=== PATIENT | female | born 1995 | race Caucasian/White ===

== ENCOUNTER 2024-12-07 21:06 | Emergency (ER) | payer SELFPAY ==
[2024-12-07] MEDS ORDERED: Sodium Chloride 0.9% 2.5 ML Syringe FLUSH PRN (21:42)
[2024-12-07] MEDS ORDERED: Sodium Chloride 0.9% 20 ML SDV IV PRN (21:42)
[2024-12-07] MEDS ORDERED: Sodium Chloride 0.9% 10 ML Syringe FLUSH PRN (21:42)
[2024-12-07] MEDS: Ondansetron 4 MG/2 ML SDV IVPUSH ONE (21:51)
[2024-12-07] MEDS: Sodium Chloride 0.9% 1,000 ML IV STA (21:51)
[2024-12-07 21:55] LABS: BASOPHILS ABSOLUTE AUTO 0.08 K/uL (0.00-0.20); BASOPHILS PERCENT AUTO 0.9 % (0.0-1.0); EOSINOPHILS ABSOLUTE AUTO 0.43 K/uL (0.00-0.45); EOSINOPHILS PERCENT AUTO 4.8 % (0.0-6.0); HEMOGLOBIN 13.1 g/dL (12.0-16.0); IMMATURE GRAN ABSOLUTE AUTO 0.01 K/uL (0.00-0.05); IMMATURE GRAN PERCENT AUTO 0.1 % (0.0-0.4); LYMPHOCYTES ABSOLUTE AUTO 3.11 K/uL (1.00-4.80); LYMPHOCYTES PERCENT AUTO 35.1 % (24.0-44.0); MEAN CORPUSCULAR HGB CONC 32.8 g/dL (32.0-36.0); MEAN CORPUSCULAR VOLUME 85.5 fL (83.0-99.0); MEAN PLATELET VOLUME 10.1 fL (9.4-12.3); MONOCYTES ABSOLUTE AUTO 0.85 K/uL (0.00-0.80); MONOCYTES PERCENT AUTO 9.6 % (0.0-8.0); NEUTROPHILS ABSOLUTE AUTO 4.39 K/uL (1.80-7.70); NEUTROPHILS PERCENT AUTO 49.5 % (41.0-71.0); PLATELET COUNT,PLT 288 K/uL (150-400); RED BLOOD CELL COUNT 4.68 M/uL (4.10-5.30); WHITE BLOOD CELL COUNT,WBC 8.87 K/uL (3.9-11.3)
[2024-12-07 22:03] LABS: BILIRUBIN,URINE NEGATIVE (NEGATIVE); COLOR,URINE YELLOW; GLUCOSE,URINE NEGATIVE (NEGATIVE); KETONES,URINE TRACE mg/dL (NEGATIVE); LEUKOCYTE ESTERASE,URINE TRACE (NEGATIVE); NITRITE,URINE NEGATIVE (NEGATIVE); OCCULT BLOOD,URINE NEGATIVE (NEGATIVE); PH,URINE 6.5 (5.0-8.0); PROTEIN,URINE NEGATIVE (NEGATIVE)
[2024-12-07 22:06] LABS: APPEARANCE,URINE HAZY
[2024-12-07 22:10] LABS: BACTERIA,URINE FEW (NEGATIVE); EPITHELIAL CELLS,URINE FEW (NONE-FEW); MUCUS,URINE MODERATE (NONE-MOD); RBC,URINE 0-2 (0-2/HPF); WBC,URINE 15-20 (0-5/HPF)
[2024-12-07 22:20] LABS: A/G RATIO 1.2 (0.9-1.6); ALBUMIN 3.6 g/dL (3.4-5.0); BILIRUBIN TOTAL 0.4 mg/dL (0.2-1.0); CALCIUM 8.9 mg/dL (8.5-10.1); CARBON DIOXIDE,CO2 27.1 mmol/L (21.0-32.0); EST CRCL DRUG DOSING (CG) 79.99 mL/min; POTASSIUM,K 3.9 mmol/L (3.5-5.1); PROTEIN TOTAL,TP 6.7 g/dL (6.4-8.2)
== END 2024-12-07 23:41 | disposition home or self-care (01) ==
LOC: MW.ED 21:06
DX: K80.50 Calculus of bile duct without cholangitis or cholecystitis without obstruction (principal); R11.2 Nausea with vomiting, unspecified; E10.9 Type 1 diabetes mellitus without complications; Z91.011 Allergy to milk products; Z91.018 Allergy to other foods; Z91.013 Allergy to seafood; Z91.048 Other nonmedicinal substance allergy status; Z79.4 Long term (current) use of insulin; Z79.84 Long term (current) use of oral hypoglycemic drugs; Z79.899 Other long term (current) drug therapy
CPT/HCPCS: 36415; 76705; 76705-26; 80053; 81001; 81025; 83690; 85025; 87086; 96361; 96374; 99284; 99284-25; J2405; J7030

== ENCOUNTER 2025-01-19 20:04 | Emergency (ER) | payer SELFPAY ==
[2025-01-19 23:19] LABS: BASOPHILS ABSOLUTE AUTO 0.04 K/uL (0.00-0.20); BASOPHILS PERCENT AUTO 0.5 % (0.0-1.0); EOSINOPHILS ABSOLUTE AUTO 0.18 K/uL (0.00-0.45); EOSINOPHILS PERCENT AUTO 2.1 % (0.0-6.0); IMMATURE GRAN ABSOLUTE AUTO 0.02 K/uL (0.00-0.05); IMMATURE GRAN PERCENT AUTO 0.2 % (0.0-0.4); LYMPHOCYTES ABSOLUTE AUTO 3.28 K/uL (1.00-4.80); LYMPHOCYTES PERCENT AUTO 37.4 % (24.0-44.0); MEAN PLATELET VOLUME 10.2 fL (9.4-12.3); MONOCYTES ABSOLUTE AUTO 0.55 K/uL (0.00-0.80); MONOCYTES PERCENT AUTO 6.3 % (0.0-8.0); NEUTROPHILS ABSOLUTE AUTO 4.70 K/uL (1.80-7.70); NEUTROPHILS PERCENT AUTO 53.5 % (41.0-71.0); NRBC ABSOLUTE 0.00 K/uL (0.00-0.02); NRBC PERCENT 0.0 /100WBC (0.0-0.2); PLATELET COUNT,PLT 276 K/uL (150-400); RED BLOOD CELL COUNT 4.98 M/uL (4.10-5.30); WHITE BLOOD CELL COUNT,WBC 8.77 K/uL (3.9-11.3)
[2025-01-19] MEDS: droPERidol 2.5 MG/ML SDV IVPUSH ONE (23:29)
[2025-01-19 23:49] LABS: A/G RATIO 1.1 (0.9-1.6); ALANINE AMINOTRANSFERASE,ALT 41 IU/L (14-63); ASPARTATE AMNIOTRANSFERASE,AST 49 IU/L (15-37); BILIRUBIN TOTAL 0.3 mg/dL (0.2-1.0); BLOOD UREA NITROGEN,BUN 7 mg/dL (7.0-18.0); CARBON DIOXIDE,CO2 24.8 mmol/L (21.0-32.0); CHLORIDE,CL 106 mmol/L (98-107); CREATININE 0.8 mg/dL (0.6-1.0); GLUCOSE RANDOM 55 mg/dL (74-106); POTASSIUM,K 3.4 mmol/L (3.5-5.1); PROTEIN TOTAL,TP 6.9 g/dL (6.4-8.2); SODIUM,NA 141 mmol/L (136-145)
[2025-01-19 23:56] LABS: ESTIMATED GFR 102 mL/min (>60)
[2025-01-20] MEDS: 50% Dextrose in Water 50 ML Syringe IVPUSH ONE (00:05)
[2025-01-20] MEDS: Iopamidol 755 Mg/ML 100 ML Bottle IVPUSH ONE (00:25)
[2025-01-20] MEDS: Ketorolac 30 MG/ML SDV IVPUSH ONE (01:34)
== END 2025-01-20 01:53 | disposition home or self-care (01) ==
LOC: MW.ED 20:04
DX: G89.18 Other acute postprocedural pain (principal); R10.9 Unspecified abdominal pain; J45.909 Unspecified asthma, uncomplicated; E10.9 Type 1 diabetes mellitus without complications; Z90.49 Acquired absence of other specified parts of digestive tract; Z91.011 Allergy to milk products; Z91.018 Allergy to other foods; Z91.013 Allergy to seafood; Z79.51 Long term (current) use of inhaled steroids; Z79.899 Other long term (current) drug therapy; Z79.4 Long term (current) use of insulin; Z75.3 Unavailability and inaccessibility of health-care facilities
CPT/HCPCS: 36415; 71275; 74177; 80053; 82947; 83605; 84484; 84702; 85025; 93005; 96361; 96374; 96375; 99285; J1790; J1885; J7030; Q9967; 93010; 99283

== ENCOUNTER 2025-04-04 08:30 | Emergency (ER) | payer OTHER ==
[2025-04-04] MEDS ORDERED: Sodium Chloride 0.9% 2.5 ML Syringe FLUSH PRN (09:08)
[2025-04-04] MEDS ORDERED: Sodium Chloride 0.9% 10 ML Syringe FLUSH PRN (09:08)
[2025-04-04] MEDS: diphenhydrAMINE 50 MG/ML SDV IVPUSH ONE (09:26)
[2025-04-04] MEDS: methylPREDNISolone Sodium Succinate 125 MG/2 ML SDV IVPUSH ONE (09:26)
[2025-04-04 09:35] LABS: APPEARANCE,URINE CLOUDY; GLUCOSE,URINE NEGATIVE (NEGATIVE); OCCULT BLOOD,URINE NEGATIVE (NEGATIVE)
[2025-04-04 09:45] LABS: EPITHELIAL CELLS,URINE MANY (NONE-FEW)
[2025-04-04 09:47] LABS: BASOPHILS ABSOLUTE AUTO 0.07 K/uL (0.00-0.20); BASOPHILS PERCENT AUTO 1.0 % (0.0-1.0); EOSINOPHILS ABSOLUTE AUTO 0.36 K/uL (0.00-0.45); EOSINOPHILS PERCENT AUTO 5.3 % (0.0-6.0); IMMATURE GRAN ABSOLUTE AUTO 0.00 K/uL (0.00-0.05); IMMATURE GRAN PERCENT AUTO 0.0 % (0.0-0.4); LYMPHOCYTES ABSOLUTE AUTO 2.16 K/uL (1.00-4.80); LYMPHOCYTES PERCENT AUTO 31.9 % (24.0-44.0); MEAN PLATELET VOLUME 9.4 fL (9.4-12.3); MONOCYTES ABSOLUTE AUTO 0.43 K/uL (0.00-0.80); MONOCYTES PERCENT AUTO 6.4 % (0.0-8.0); NEUTROPHILS ABSOLUTE AUTO 3.75 K/uL (1.80-7.70); NEUTROPHILS PERCENT AUTO 55.4 % (41.0-71.0); NRBC ABSOLUTE 0.00 K/uL (0.00-0.02); NRBC PERCENT 0.0 /100WBC (0.0-0.2); PLATELET COUNT,PLT 314 K/uL (150-400); RED BLOOD CELL COUNT 4.73 M/uL (4.10-5.30); WHITE BLOOD CELL COUNT,WBC 6.77 K/uL (3.9-11.3)
[2025-04-04 10:11] LABS: A/G RATIO 1.0 (0.9-1.6); ALANINE AMINOTRANSFERASE,ALT 30.0 IU/L (14-63); ASPARTATE AMNIOTRANSFERASE,AST 26.0 IU/L (15-37); BILIRUBIN TOTAL 0.4 mg/dL (0.2-1.0); BLOOD UREA NITROGEN,BUN 10.0 mg/dL (7.0-18.0); CARBON DIOXIDE,CO2 26.9 mmol/L (21.0-32.0); CHLORIDE,CL 107.0 mmol/L (98-107); CREATININE 0.8 mg/dL (0.6-1.0); EST CRCL DRUG DOSING (CG) 95.38 mL/min; GLUCOSE RANDOM 145.0 mg/dL (74-106); POTASSIUM,K 4.3 mmol/L (3.5-5.1); PROTEIN TOTAL,TP 6.3 g/dL (6.4-8.2); SODIUM,NA 142.0 mmol/L (136-145)
[2025-04-04 10:15] LABS: ESTIMATED GFR 101.0 mL/min (>60)
[2025-04-04] MEDS: Iopamidol 755 MG/ML 500 ML Multipack Bottle IVPUSH STA (10:26)
[2025-04-04] MEDS: Ketorolac 30 MG/ML SDV IVPUSH ONE (11:29)
[2025-04-04] MEDS: cefTRIAXone 1 GM in Water For Injection, Sterile 10 ML IVPUSH ONE (11:29)
[2025-04-04 13:21] LABS: CANDIDA DNA PROBE NEGATIVE (NEGATIVE); GARDNERELLA DNA PROBE POSITIVE (NEGATIVE); TRICHOMONAS DNA PROBE NEGATIVE (NEGATIVE)
[2025-04-04 14:05] LABS: C. TRACHOMATIS BY PCR NOT DETECTED; N. GONORRHOEAE BY PCR NOT DETECTED
== END 2025-04-04 12:56 | disposition home or self-care (01) ==
LOC: MW.ED 08:30
DX: N89.8 Other specified noninflammatory disorders of vagina (principal); N39.0 Urinary tract infection, site not specified; E10.9 Type 1 diabetes mellitus without complications; J45.909 Unspecified asthma, uncomplicated; Z88.8 Allergy status to other drugs, medicaments and biological substances; Z91.011 Allergy to milk products; Z91.013 Allergy to seafood; Z91.018 Allergy to other foods; Z79.899 Other long term (current) drug therapy; Z79.4 Long term (current) use of insulin; Z79.84 Long term (current) use of oral hypoglycemic drugs; Z90.49 Acquired absence of other specified parts of digestive tract; Z87.19 Personal history of other diseases of the digestive system
CPT/HCPCS: 36415; 74177; 76856; 80053; 81001; 83690; 84703; 85025; 87086; 87088; 87186; 87480; 87491; 87510; 87591; 87660; 96361; 96374; 96375; 99284; J0696; J1200; J1885; J2919; J7030; Q9967